=== PATIENT | female | born 1935 | race Caucasian/White ===

== ENCOUNTER 2017-01-27 13:43 | Emergency (ER) | payer MEDICARE, BC ==
[~2017-01-27] VITALS: Ht 160 cm; Wt 56.7 kg
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
--- NOTE | 2017-01-27 14:40 | NUR ---
PT TAKEN TO CT.
--- NOTE | 2017-01-27 14:50 | NUR ---
[employer]IL[employer] OFFICERS AT BS.
--- NOTE | 2017-01-27 16:58 | NUR ---
Patient discharged to home in stable condition. Written and verbal after care instructions given. Patient verbalizes understanding of instruction.
[2017-01-27 17:00] VITALS: BP 160/82
== END 2017-01-27 17:19 | disposition home or self-care (01) ==
LOC: ER 13:50
DX: S16.1XXA Strain of muscle, fascia and tendon at neck level, initial encounter (principal); I10 Essential (primary) hypertension; R51 Headache; V43.52XA Car driver injured in collision with other type car in traffic accident, initial encounter; Y93.89 Activity, other specified; Y92.488 Other paved roadways as the place of occurrence of the external cause; Y99.8 Other external cause status
CPT/HCPCS: 70450-TC; 72125-TC; A4606; Z7610